=== PATIENT | female | born 1975 | race Caucasian/White ===

== ENCOUNTER 2024-10-23 08:12 | Emergency (ER) | payer OTHER, BC, SELFPAY ==
[2024-10-23 08:19] VITALS: BP 137/87; PULSE 76; RESP 18; TEMP 36.8; O2SAT 97
--- NOTE | 2024-10-23 08:31 | EDNOTE_ITS ---
ED Allergic Reaction RME/HPI General Chief complaint: General Adult/Misc Complain Stated complaint: FACIAL SWELLING Time Seen by Provider: 10/23/24 08:19 Source: patient Arrival date/time: 10/23/24 08:12 49-year-old female with no known medical history presents to the emergency room with a chief complaint of left-sided facial swelling x 3 days Mode of arrival: ambulatory Limitations: no limitations Related Data Previous Rx's ?Medication ?Instructions ?Recorded meclizine 25 mg tablet 25 mg PO TID PRN dizziness # 20 tabs 01/31/21 Allergies Allergy/AdvReac Type Severity Reaction Status Date / Time No Known Allergies Allergy Verified 10/23/24 08:15 Review of Systems Review of Systems Systems Reviewed: All systems reviewed, normal except as documented Constitutional Constitutional: Reports system reviewed and no additional complaints, except as documented, Denies fatigue, Denies fever(s), Denies headache(s) and Denies weakness Eyes Eyes: Reports system reviewed and no additional complaints, except as documented, Denies blurry vision, Denies change in vision and Denies itchy eyes ENT Ears, Nose, Mouth, and Throat: Reports system reviewed and no additional complaints, except as documented, Denies otalgia, Denies headache(s), Denies lip swelling, Denies nasal congestion, Denies throat swelling, Denies tongue swelling and Denies vertigo Cardiovascular Cardiovascular: Reports system reviewed and no additional complaints, except as documented, Denies chest pain, Denies dyspnea and Denies dyspnea on exertion Respiratory Respiratory: Reports system reviewed and no additional complaints, except as do cumented, Denies chest congestion, Denies cough, Denies dyspnea, Denies dyspnea on exertion and Denies wheezing Gastrointestinal Gastrointestinal: Reports system reviewed and no additional complaints, except as documented, Denies abdominal pain, Denies cramping, Denies nausea and Denies vomiting Genitourinary Genitourinary: Reports system reviewed and no additional complaints, except as documented Musculoskeletal Musculoskeletal: Reports system reviewed and no additional complaints, except as documented and Denies back pain Integumentary/Breasts Skin/Breast: Reports system reviewed and no additional complaints, except as documented and Denies wounds Neurologic Neurologic: Reports system reviewed and no additional complaints, except as documented, Denies confusion, Denies headache(s), Denies lack of coordination, Denies vertigo and Denies weakness Psychiatric Psychiatric: Reports system reviewed and no additional complaints, except as documented, Denies anxiety, Denies confusion, Denies depression, Denies paranoia, Denies suicidal ideation and Denies tactile hallucinations Endocrine Endocrine: Reports system reviewed and no additional complaints, except as documented and Denies fatigue Hematologic/Lymphatic Hematologic/Lymphatic: Reports system reviewed and no additional complaints, except as documented and Denies lymphadenopathy Allergic/Immunologic Allergic/Immunologic: Reports system reviewed and no additional complaints, except as documented, Denies itchy eyes, Denies lip swelling, Denies seasonal rhinorrhea, Denies throat swelling, Denies tongue swelling, Denies urticaria and Denies wheezing Past Medical History Social History SMOKING STATUS: Never smoker ED Exam General Limitations: Present no limitations General appearance: Present alert and in no apparent distress Head Head exam: Present atraumatic Eye Eye exam: Present normal appearance, PERRL and EOMI ENT ENT exam: Present normal exam, normal oropharynx and mucous membranes moist Neck Neck exam: Present normal inspection, full ROM and trachea midline Chest Chest inspection: Present normal inspection and symmetric chest wall rise Respiratory Respiratory exam: Present normal lung sounds bilaterally; Absent respiratory distress, wheezes, stridor, accessory muscle use or prolonged expiratory phase Cardiovascular Cardiovascular exam: Present regular rate, normal rhythm and normal heart sounds; Absent tachycardia Abdominal Exam Abdominal exam: Present soft and normal bowel sounds Extremities Exam Extremities exam: Present normal inspection and full ROM Back Exam Back exam: Present normal inspection and full ROM Neurological Exam Neurological exam: Present alert, oriented X3 and CN II-XII intact Psychiatric Psychiatric exam: Present normal affect and normal mood Skin Skin exam: Present warm, dry, intact and normal color Course Quality Measures none Orders Category Date Time Status Dexamethasone Inj [Decadron Inj] Med 10/23/24 08:28 Discontinued 10 mg PO X1 ONE DiphenhydrAMINE [Benadryl] Med 10/23/24 08:28 Discontinued 25 mg PO X1 ONE Famotidine [Pepcid] Med 10/23/24 08:28 Discontinued 20 mg PO X1 ONE Vital Signs Vital signs: Vital Signs Temperature 98.3 F 10/23/24 08:19 Pulse Rate 76 10/23/24 08:19 Respiratory Rate 18 10/23/24 08:19 Blood Pressure 137/87 H 10/23/24 08:19 Pulse Oximetry (%) 97 10/23/24 08:19 Oxygen Delivery Method Room Air 10/23/24 08:19 Allergic Reaction MDM Narrative MDM Narrative:: 49-year-old female with no known medical history presents to the emergency room with a chief complaint of left-sided facial swelling x 3 days Patient is hemodynamically stable and in no apparent distress Physical examination shows clear bilateral lung sounds there is no wheezing stridor or any abnormal breath sounds. There is no tongue swelling lip swelling or any difficulty breathing. The patient denies any chest pain or stomach pain. Patient states she believes the cause of this is a certain make-up she uses. Patient states this has happened in the past and she stopped using her make-up and just recently put it on again Wednesday and began having the swelling once again. The swelling on the face has been going on for the last 3 days. Antihistamines were given here at bedside with improvement to her symptoms Patient was discharged and educated to follow-up with primary care provider in the next 24 to 48 hours and return to the emergency room for any evidence of worsening signs or symptoms Patient data External records reviewed:: [facility] previous records Clinical information provided by:: patient Social determinants that could affect healthcare access:: none Patient has the following chronic illnesses:: No chronic illness How is presenting disease/condition affected by chronic disease/condition?: no chronic disease Evaluation data The following diagnostics were reviewed and interpreted by me:: lab results and radiology exam(s) Lab and/or radiology exams considered but not ordered:: Labs and radiology exams considered and ordered Interpretation Summary: N/A Medications / Prescriptions Medications or Prescriptions considered but not ordered:: Medication given Medication administrations:: Medication Administration History Discontinued Medications Dexamethasone Sodium Phosphate (Dexamethasone Sod Phos Inj 10 Mg/Ml Vial) 10 mg PO X1 ONE Stop: 10/23/24 08:29 Last Admin: 10/23/24 08:56 Dose: 10 mg Documented By: LP Diphenhydramine HCl (Diphenhydramine Elix 25 Mg/10 Ml [facility] [place]) 25 mg PO X1 ONE Stop: 10/23/24 08:29 Last Admin: 10/23/24 08:56 Dose: 25 mg Documented By: LP Famotidine (Famotidine 20 Mg Tablet) 20 mg PO X1 ONE Stop: 10/23/24 08:29 Last Admin: 10/23/24 08:56 Dose: 20 mg Documented By: LP Medication given Consultations Consultation(s) initiated? (list below): No Diagnosis Differential Diagnosis allergic reaction: anaphylaxis, allergic reaction, angioedema, contact dermatitis and urticaria Most likely diagnosis given after review of the tests above:: Allergic reaction Admission Indicated Admission indicated?: not indicated Admission Request Was there a request for admission?: No Disposition Plan Disposition Plan: Discharge Discharge Attestation Discharge Attestation: The patient and all family members were given an opportunity to ask questions and understood the discharge instructions. Discharge instructions specifically effects, indications for sooner follow up or return to the emergency department, and the expected course of current diagnosis. Patient condition: Stable Discharge Plan Plan Patient Disposition: HOME (Self Care) Discharge Disposition comment: Stable Prescriptions/Referrals Prescriptions/Med Rec: No Action meclizine 25 mg tablet 25 mg PO TID PRN (Reason: dizziness) Qty: 20 0RF Referrals: Real Brice MD [Primary Care Provider, Internal Medicine] - In 1 week Problem List Clinical Impression: Allergic reaction Patient/Caregiver Discharge Instructions Additional Instructions: Please follow-up with your primary care provider in the next 24 to 48 hours Please stop using your make-up as this is the cause of your allergic reaction For any evidence of worsening signs or symptoms return to the emergency room immediately Print Language: Cypriot Stand Alone Forms: Rebecca Award Info., Work/School Release, Patient Portal Info Letter TOD/VANDANA Supervising Physician TOD/VANDANA Supervising Physician: Dr. Dean
[2024-10-23] MEDS: DiphenhydrAMINE ELIX 25 MG/10 ML UDC PO (08:56)
[2024-10-23] MEDS: FAMOTIDINE 20 MG TABLET PO (08:56)
[2024-10-23] MEDS: DEXAMETHASONE SOD PHOS INJ 10 MG/ML VIAL PO (08:56)
== END 2024-10-23 10:03 | disposition home or self-care (01) ==
PROVIDERS: Emergency Provider Nurse Practitioner Family; PCP Internal Medicine
DX: R22.0 Localized swelling, mass and lump, head (principal)
CPT/HCPCS: 99283; J1100; A9270